=== PATIENT | male | born 1960 | race African-American/Black ===

== ENCOUNTER → 2018-06-24 09:09 | Outpatient (CLI) | payer BC, SELFPAY ==
--- NOTE | 2018-06-24 09:18 | US_ITS ---
US abdomen complete HISTORY: Right lower quadrant pain. Gallbladder removed. Intermittent right-sided pain ITS.REASON: ABD PAIN ORDERING PHYSICIAN: Nicolasa Anthony PATIENT AGE: 58 years COMPARISON: CTA chest December 2016 included only uppermost abdomen FINDINGS: . PANCREAS:Less than optimal visualization but no obvious mass or abnormal fluid collection. No ductal dilatation. LIVER:Increased echogenicity with diffuse fatty changes throughout the liver. No focal lesion.... No intrahepatic biliary ductal dilatation evident Portal vein normal size with normal direction flow. ( Initially question slight echogenicity recent portal vein but I believe this merely reflects the difficulty with penetration through this echogenic liver with resulting artifact) Gallbladder. Surgically removed. No biliary ductal dilatation. Kidneys appear normal size with cortex well-maintained. No hydronephrosis. Normal color Doppler survey both kidneys. RIGHT KIDNEY:U11.5 cm length x 5.9 cm x 8.9 cm. Unremarkable. Normal size and echogenicity. Period. LEFT KIDNEY:11.2 cm length x 6.5 cm x 7.1 cm Normal size and echogenicity. I would note a 8.4 x 8 mm hyperechoic nodule at the upper portion left kidney. Echogenic nodule of this character likely reflecting lipoma or angiomyolipoma of kidney. Although most likely benign features, suggest CT follow-up to further evaluate and characterize..pre and postcontrast may be helpful GALLBLADDER:No gallstones, gallbladder wall thickening, pericholecystic fluid, or biliary dilatation. AORTA: Normal caliber. Minimal plaque No evidence of aneurysmal dilatation. Period 1.8 cm approximately and tapers as it continues distal. SPLEEN:Normal size. And appearance. Measuring up to 11 cm in length. Period No ascites or free fluid abdomen. IMPRESSION: 1. Gallbladder is been removed. No bili ductal dilatation. 2. Fatty liver/Diffuse Hepatic steatosis 3. Left kidney.-There is a 8.4 mm hyperechoic nodule upper pole left kidney. 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
== END ==
PROVIDERS: PCP Nurse Practitioner; Visit Provider Nurse Practitioner
DX: R10.30 Lower abdominal pain, unspecified (principal)
CPT/HCPCS: 76700

== ENCOUNTER → 2018-07-04 14:10 | Outpatient (CLI) | payer BC, SELFPAY ==
--- NOTE | 2018-07-04 14:23 | CT_ITS ---
CT abdomen wo con CLINICAL INDICATION: Follow-up left renal mass ITS.REASON: LEFT KIDNEY MASS ORDERING PHYSICIAN: Nicolasa Anthony PATIENT AGE: 58 years COMPARISON: 06/24/2018, 07/20/2009 TECHNIQUE: Axial images obtained with sagittal and coronal reformats. All CT scans at the facility use one or more dose reduction, viz: automated exposure control, ma/kV adjustment per patient size (including targeted exams where dose is matched to indication, i.e. head), or iterative reconstruction technique. PROCEDURE: Oral Contrast: None IV Contrast: None . FINDINGS: No acute finding in the lower chest. Diffuse fatty liver. Prior cholecystectomy. The spleen, adrenal glands, and pancreas have an unremarkable unenhanced appearance. Previous ultrasound of 06/24/2018 demonstrated a 8 mm area of increased echogenicity along the superior pole the left kidney. There is a subtle millimeter area of decreased density in the upper pole the left kidney. This is nonspecific and not well circumscribed possibly corresponding to the sonographic abnormality.. No other significant anomalies are evident. No renal calculi are apparent. No bony abnormalities evident. IMPRESSION: There is a subtle area of decreased attenuation in the upper pole the left kidney possibly corresponding to the sonographic abnormality. This is of questionable clinical significance. Consider 3 month follow-up CT BOTH WITHOUT AND WITH IV CONTRAST for further evaluation.
== END ==
PROVIDERS: PCP Nurse Practitioner; Visit Provider Nurse Practitioner
DX: N28.89 Other specified disorders of kidney and ureter (principal)
CPT/HCPCS: 74150

== ENCOUNTER → 2022-04-19 09:51 | Outpatient (CLI) | payer BC, SELFPAY ==
--- NOTE | 2022-04-19 09:57 | XR_ITS ---
FINAL REPORT CLINICAL HISTORY: pain in neck and right shoulder blade, no sx FINDINGS: CERVICAL SPINE Four views were obtained. There is no acute fracture. There is no malalignment. There are mild degenerative changes with osteophytes. There is no soft tissue abnormality. IMPRESSION: Mild degenerative changes with no acute bony abnormality. THORACIC SPINE Two views were obtained. There is no acute fracture. There is no malalignment. There are moderate degenerative changes with osteophytes. There is mild chronic wedging of a midthoracic vertebra. There is no soft tissue abnormality. IMPRESSION: Moderate degenerative change with no acute bony abnormality. Reviewed, Interpreted and Dictated by Martín Springer III, MD Transcribed by Adrianna Ghosh Authenticated and . [facility]
== END ==
PROVIDERS: PCP Family Medicine; Visit Provider Nurse Practitioner Family
DX: M54.2 Cervicalgia (principal); M54.6 Pain in thoracic spine
CPT/HCPCS: 72084

== ENCOUNTER 2023-04-02 22:01 | Emergency (ER) | payer BC, SELFPAY ==
[2023-04-02 22:01] VITALS: BP 124/81; PULSE 74; RESP 16; TEMP 36.4; O2SAT 100; BMI 33.7
--- NOTE | 2023-04-02 22:05 | ECG_ITS ---
APPROVED REPORT Exam: Resting ECG HR:73 bpm ECG Measurements Heart Rate 73 AXES LA 165 P 66 QRSd 102 QRS 57 QT 374 T 65 QTc 399 Conclusion SINUS RHYTHM WITH SINUS ARRHYTHMIA NORMAL ECG UNCONFIRMED REPORT Electronically signed by : Colby Simpson MD 04/04/2023 18:27:45
[2023-04-02 22:30] VITALS: BP 122/78; PULSE 85; RESP 14; O2SAT 97
[2023-04-02 23:00] LABS: Basophils % 0.6 % (0.1-2.0); Eosinophils % 0.3 % (0.1-12.0); Hematocrit 51.4 % (42.0-52.0); Hemoglobin 17.3 g/dL (14.1-18.0); Lymphocytes % 31.2 % (10-50); Mean Corpuscular HGB Conc 33.7 g/dL (31.8-35.4); Mean Corpuscular Hemoglobin 29.4 pg (27.0-31.2); Mean Platelet Volume 8.3 fl (7.4-10.4); Monocytes # 0.4 K/mm3 (0.1-1.0); Monocytes % 6.7 % (1.7-9.3); Neutrophils # 3.9 K/mm3 (1.8-7.8); Neutrophils % 61.2 % (37.0-80.0); Platelet Count 246 K/mm3 (142-424); Red Cell Distribution Width 14.2 % (11.5-17.5); White Blood Count 6.3 K/mm3 (4.8-10.8)
[2023-04-02 23:01] VITALS: BP 102/65; PULSE 88; RESP 18; O2SAT 96
[2023-04-02 23:01] LABS: Chloride 100 mmol/L (98-107)
[2023-04-02 23:02] LABS: Potassium 3.7 mmoL/L (3.5-5.1); Sodium 137 mmol/L (136-145)
[2023-04-02 23:04] LABS: Alanine Aminotransferase 32 U/L (12-78); Albumin Level 5.1 g/dl (3.5-5.0); Albumin/Globulin Ratio 1.6 (1.1-1.8); Alkaline Phosphatase 72 U/L (38-126); Anion Gap 14.7 mEq/L (5-15); Aspartate Amino Transferase 49 U/L (17-59); Blood Urea Nitrogen 14 mg/dl (9-20); Carbon Dioxide 26 mmol/L (22.0-30.0); Creatinine Clearance Estimated 104 mL/min (50-200); Estimated Glomerular Filt Rate 68 ml/min (>60); GFR (African American) 82 ML/MIN (>60); Globulin 3.1 g/dL (1.3-3.2); Total Protein,Serum 8.2 g/dl (6.3-8.2)
[2023-04-02 23:05] LABS: Calcium 9.7 mg/dl (8.4-10.2); Glucose 195 mg/dl (74-100)
[2023-04-02 23:18] LABS: Troponin I < 0.01 ng/ml (0.00-0.034)
--- NOTE | 2023-04-02 23:18 | CT_ITS ---
PROCEDURE INFORMATION: Exam: CT Head Without Contrast Exam date and time: 04/02/2023 11:37 PM Age: 62 years old Clinical indication: Other: Vertigo; Additional info: Vertigo, recurrent syncope, fall TECHNIQUE: Imaging protocol: Computed tomography of the head without contrast. Radiation optimization: All CT scans at this facility use at least one of these dose optimization techniques: automated exposure control; mA and/or kV adjustment per patient size (includes targeted exams where dose is matched to clinical indication); or iterative reconstruction. REPORTING DATA: Count of CT and Cardiac NM exams in prior 12 months: This patient has received 0 known CTs and 0 known cardiac nuclear medicine studies in the 12 months prior to the current study. COMPARISON: CT ANGIO HEAD 04/02/2023 11:37 PM FINDINGS: Brain: No acute infarct. No hemorrhage. Unremarkable white matter for age. No mass effect. Cerebral ventricles: No ventriculomegaly. Paranasal sinuses: Scattered paranasal sinus mucosal thickening, without air-fluid level present. Mastoid air cells: Visualized mastoid air cells are well aerated. Orbital cavities: Mild bilateral proptosis. Bones/joints: Unremarkable. No acute fracture. Soft tissues: Unremarkable. IMPRESSION: No acute intracranial abnormality.
--- NOTE | 2023-04-02 23:18 | XR_ITS ---
PROCEDURE INFORMATION: Exam: XR Pelvis Exam date and time: 04/02/2023 11:46 PM Age: 62 years old Clinical indication: Injury or trauma; Fall; Blunt trauma (contusions or hematomas); Left; Pelvic region; Additional info: Fall, pain TECHNIQUE: Imaging protocol: Radiologic exam of the pelvis. Views: 1 or 2 view. COMPARISON: CR XR MULTIPLE SPINE 6+V 04/19/2022 10:22 AM FINDINGS: Bones/joints: There is mild osteoarthritis of the hips with joint space narrowing, productive changes, and subchondral sclerosis. The osseous structures are intact, with no signs of acute fracture, dislocation, or malalignment. Age-related degenerative changes are observed. There is no evidence of abnormal bone density or destructive lesions. Soft tissues: The soft tissues appear within normal limits. IMPRESSION: At the time of imaging, the study shows no acute osseous abnormalities but does reveal signs of age-related degenerative changes.
--- NOTE | 2023-04-02 23:18 | CT_ITS ---
PROCEDURE INFORMATION: Exam: CTA Chest With Contrast Exam date and time: 04/02/2023 11:45 PM Age: 62 years old Clinical indication: Pain; Other: Vertigo; Left-sided; Additional info: Vertigo, recurrent syncope, fall TECHNIQUE: Imaging protocol: Computed tomographic angiography of the chest with contrast. Exam focused on the arteries. 3D rendering (Not supervised by radiologist): MIP and/or 3D reconstructed images were created by the technologist. Radiation optimization: All CT scans at this facility use at least one of these dose optimization techniques: automated exposure control; mA and/or kV adjustment per patient size (includes targeted exams where dose is matched to clinical indication); or iterative reconstruction. Contrast material: ISOVUE; Contrast volume: 85 ml; Contrast route: INTRA-ARTERIAL (ARTERIAL); REPORTING DATA: Count of CT and Cardiac NM exams in prior 12 months: This patient has received 0 known CTs and 0 known cardiac nuclear medicine studies in the 12 months prior to the current study. COMPARISON: [facility] CTA-CHEST 12/18/2016 7:13 AM FINDINGS: Pulmonary arteries: Normal. No pulmonary emboli. Lobar, segmental, and subsegmental vessels are not well evaluated. Aorta: There is atherosclerotic disease of the visualized aorta and its major branch vessels. Lungs: Scattered areas of bronchial wall thickening which are likely chronic inflammatory. A few areas of subpleural reticulation are noted, nonspecific. Stable calcified granuloma in the right lower lobe. Evaluation for small pulmonary nodules is precluded by patient condition. Fleischner Society guidelines are n/a. There is atelectasis at the lung bases. Pleural spaces: Unremarkable. No pneumothorax. No pleural effusion. Heart: Unremarkable. No cardiomegaly. No pericardial effusion. Lymph nodes: Unremarkable. No enlarged lymph nodes. Liver: There is possible hepatic steatosis, evaluation is limited secondary to contrast enhancement. Gallbladder and bile ducts: The patient is status post cholecystectomy. Bones/joints: There is diffuse degenerative disease of the visualized osseous structures. Soft tissues: There is bilateral gynecomastia. IMPRESSION: 1. The aorta is normal in course and caliber without focal abnormality. No dissection or aneurysm. 2. No dense parenchymal consolidation, pleural effusion, or pneumothorax.
--- NOTE | 2023-04-02 23:18 | CT_ITS ---
PROCEDURE INFORMATION: Exam: CTA Neck With Contrast Exam date and time: 04/02/2023 11:37 PM Age: 62 years old Clinical indication: Vertigo; Additional info: Vertigo, recurrent syncope, fall TECHNIQUE: Imaging protocol: Computed tomographic angiography of the neck with contrast. Exam focused on the cervical segments of the vasculature. 3D rendering (Not supervised by radiologist): MIP and/or 3D reconstructed images were created by the technologist. Radiation optimization: All CT scans at this facility use at least one of these dose optimization techniques: automated exposure control; mA and/or kV adjustment per patient size (includes targeted exams where dose is matched to clinical indication); or iterative reconstruction. Contrast material: ISOVUE; Contrast volume: 95 ml; Contrast route: INTRAVENOUS (IV); REPORTING DATA: Count of CT and Cardiac NM exams in prior 12 months: This patient has received 0 known CTs and 0 known cardiac nuclear medicine studies in the 12 months prior to the current study. COMPARISON: CT ANGIO HEAD 04/02/2023 11:37 PM FINDINGS: Right common carotid artery: No stenosis. No dissection or occlusion. Right internal carotid artery: No stenosis of the extracranial segment. No dissection or occlusion. Right external carotid artery: No occlusion or stenosis of the origin. Left common carotid artery: No stenosis. No dissection or occlusion. Left internal carotid artery: No stenosis of the extracranial segment. No dissection or occlusion. Left external carotid artery: No occlusion or stenosis of the origin. Right vertebral artery: No stenosis. No dissection or occlusion. Left vertebral artery: No stenosis. No dissection or occlusion. Soft tissues: Normal. No significant soft tissue swelling. Bones/joints: No acute fracture. IMPRESSION: No stenosis or occlusion. REFERENCES: NASCET CRITERIA. The degree of stenosis in the cervical segment of the internal carotid artery is based on NASCET criteria. Normal is no stenosis. Mild is less than 50% stenosis. Moderate is 50-69% stenosis. Severe is 70% to 99% stenosis. Total occlusion is no detectable patent lumen.
--- NOTE | 2023-04-02 23:18 | CT_ITS ---
PROCEDURE INFORMATION: Exam: CTA Head With Contrast, Arteriography Exam date and time: 04/02/2023 11:37 PM Age: 62 years old Clinical indication: Vertigo; Additional info: Vertigo, recurrent syncope, fall TECHNIQUE: Imaging protocol: Computed tomographic angiography of the head with contrast. Exam focused on the arteries. 3D rendering (Not supervised by radiologist): MIP and/or 3D reconstructed images were created by the technologist. Radiation optimization: All CT scans at this facility use at least one of these dose optimization techniques: automated exposure control; mA and/or kV adjustment per patient size (includes targeted exams where dose is matched to clinical indication); or iterative reconstruction. Contrast material: ISOVUE; Contrast volume: 95 ml; Contrast route: INTRAVENOUS (IV); REPORTING DATA: Count of CT and Cardiac NM exams in prior 12 months: This patient has received 0 known CTs and 0 known cardiac nuclear medicine studies in the 12 months prior to the current study. COMPARISON: CT HEAD/BRAIN WO CON 04/02/2023 11:37 PM FINDINGS: ANTERIOR CIRCULATION: Right internal carotid artery: Intracranial segment is patent with no significant stenosis. No aneurysm. Right middle cerebral artery: No occlusion or significant stenosis. No aneurysm. Right anterior cerebral artery: No occlusion or significant stenosis. No aneurysm. Left internal carotid artery: Intracranial segment is patent with no significant stenosis. No aneurysm. Left middle cerebral artery: No occlusion or significant stenosis. No aneurysm. Left anterior cerebral artery: No occlusion or significant stenosis. No aneurysm. POSTERIOR CIRCULATION: Right vertebral artery: No occlusion or significant stenosis. No aneurysm. Left vertebral artery: No occlusion or significant stenosis. No aneurysm. Basilar artery: No occlusion or significant stenosis. No aneurysm. Right posterior cerebral artery: No occlusion or significant stenosis. No aneurysm. Left posterior cerebral artery: No occlusion or significant stenosis. No aneurysm. Brain: No definite mass, mass effect, or midline shift. Cerebral ventricles: No ventriculomegaly. Bones/joints: Unremarkable. No acute fracture. Soft tissues: Unremarkable. IMPRESSION: No large vessel stenosis or occlusion.
[2023-04-02 23:20] VITALS: BP 102/74; BP 117/76; BP 119/73; PULSE 67; PULSE 80; PULSE 88
--- NOTE | 2023-04-02 23:30 | HMH.EDGENADL ---
Discharge Plan Disposition Patient Disposition: Home, Self-Care Condition: Good Referrals Follow up/Referrals: Tirso Leach MD [Staff Physician] - See instructions Provider,MD Lynette [Primary Care Provider] - See instructions Activity Restrictions/Add. Instructions Additional Instructions/Restrictions: You were evaluated in the emergency department today. Please keep the Holter monitor that was provided to you on. Follow-up with cardiology for the results of this. We have provided you the information for Dr. Leach. Please call their office to arrange an appointment. Call your primary care provider to let them know that you were evaluated in the emergency department today. You may need to have your blood pressure medication decreased if you continue to have symptoms of lightheadedness with position changes. Make sure that you are staying hydrated. Return to the emergency department for new or worsening symptoms. Clinical Impressions Clinical Impression: Dehydration, Orthostatic hypotension, Syncope Instructions Patient Instructions: DI for Syncope in Adults (Fainting), DI for Dehydration -- Adult Discharge ED Provider: Nakita Perez General Adult HPI General Chief complaint: Syncope Stated complaint: Syncope Time Seen by Provider: 04/02/23 23:06 Mode of Arrival: EMS Source of Information: Patient Limitations: No Limitations Description of Symptoms (Recalled from ER Triage Doc. by RN): pt has been having off and episodes of dizziness and chest pain for the last two weeks, tonight patient passed out twice and fell on left side and is complaing of left rib pain and has a skin tear on left elbow History of Present Illness HPI narrative: This patient is a 62-year-old male with a history of hypertension and diabetes on metoprolol and Jardiance presenting to the emergency department for evaluation with concern for episodes of dizziness, left upper chest pain, and fatigue over the last 2 weeks. He states that tonight, this caused him to pass out twice. The second time, he fell onto his left side between the door frame and is complaining of left rib pain and left elbow wound. He notes that the dizziness is like the room is spinning and it will come on suddenly. Mother seems to bring it on. Nothing makes it better or worse. He denies any recent illnesses, such as fever, cough, congestion, abdominal pain, nausea, vomiting, changes in bowel movements, dysuria, rashes, swelling, or other concerns. He also denies any recent changes in medications. He notes that he has been eating and drinking fine, but he has not slept well in 2 weeks. Related Data Allergies Allergy/AdvReac Type Severity Reaction Status Date / Time No Known Drug Allergies Allergy Unknown Verified 04/02/23 23:34 [NKDA] [facility] Disclaimer: The information contained in this section may have been updated after the patient was seen, as this information can be updated by other users. Social History (Updated 04/03/23 @ 02:54 by Nakita Perez DO) Smoking Status: Never smoker alcohol intake: never current occupational status: employed Travel in the last 8 weeks: None ROS Obtained: Yes All systems reviewed & no additional complaints except as documented Physical Exam General General appearance: alert and in no apparent distress Head Head exam: atraumatic and normocephalic Eye Eye exam: Present PERRL, EOMI and nystagmus (Unidirectional horizontal nystagmus); Absent scleral icterus or conjunctival redness ENT ENT exam: Present normal exam, normal oropharynx, mucous membranes moist and normal external ear exam Neck Neck exam: Present normal inspection, full ROM and trachea midline; Absent tenderness Chest Chest inspection: Present symmetric chest wall rise and tenderness (Left chest wall) Respiratory Respiratory exam: Present normal lung sounds bilaterally; Absent respiratory distress, wheezes, stridor or accessory muscle use Cardi
[2023-04-02 23:31] LABS: VBG Base Excess -1.8 mmol/L (-2.4-2.3); VBG HCO3 23.2 mmol/L (23-30); VBG Oxygen Saturation 76.9 % (50-70); VBG PCO2 39.2 mmol/L (35-51); VBG PH 7.39 mmol/L (7.31-7.41); VBG PO2 41.4 mmol/L (28-40); VBG Total CO2 24.4 mmol/L (23-27)
[2023-04-02 23:39] LABS: Magnesium 2.5 mg/dl (1.6-2.3)
[2023-04-02 23:49] LABS: NT Pro Brain Natriuretic Pep. 71.3 pg/mL (0-125)
[2023-04-02 23:57] LABS: T4 (Thyroxine) 7.9 ug/dl (5.53-11.0)
[2023-04-03] VITALS (9 sets, daily range): BP systolic 96–125; BP diastolic 61–76; PULSE 60–88; RESP 15–20; TEMP 36.5; O2SAT 94–99
[2023-04-03 00:10] LABS: Thyroid Stimulating Hormone 4.83 uIU/mL (0.465-4.68)
[2023-04-03 00:33] LABS: Microscopic, Urine URINE MICROSCOPIC (MICROSCOPIC)
[2023-04-03 00:35] LABS: Appearance,Urine CLEAR (Clear); Bilirubin,Urine Negative (Negative); Blood, Urine Negative (Negative); Color,Urine YELLOW (Yellow); Glucose,Urine (UA) 3+ (Negative); Ketones,Urine 1+ (Negative); Leukocyte Esterase,Urine Negative (Negative); Nitrate,Urine Negative (Negative); Protein,Urine Negative (Negative); Urobilinogen,Urine 0.2 EU/dl (0.2)
[2023-04-03 01:06] LABS: Bacteria,Urine Trace /lpf
[2023-04-03 01:09] LABS: Lactic Acid 1.6 mmol/L (0.7-2.1)
[2023-04-03 01:15] LABS: Coronavirus 19, PCR Not Detected (NotDetected); Influenza A, PCR Not Detected (NotDetected); Influenza B, PCR Not Detected (NotDetected)
[2023-04-03 02:47] LABS: Troponin I < 0.01 ng/ml (0.00-0.034)
== END 2023-04-03 03:12 | disposition home or self-care (01) ==
PROVIDERS: Emergency Medicine; Emergency Provider Emergency Medicine
DX: R07.81 Pleurodynia (principal); E86.0 Dehydration; I95.1 Orthostatic hypotension; R42 Dizziness and giddiness; R53.83 Other fatigue; S51.002A Unspecified open wound of left elbow, initial encounter; E11.9 Type 2 diabetes mellitus without complications; I10 Essential (primary) hypertension; W18.30XA Fall on same level, unspecified, initial encounter
CPT/HCPCS: 70450; 70496; 70498; 71275; 72170; 80053; 81001; 82803; 83605; 83735; 83880; 84436; 84443; 84484; 85025; 87636; 93005; 93225; 96361; 96374; 99285; J0131; Q9967

== ENCOUNTER 2023-08-10 15:24 | Outpatient (CLI) | payer BC, SELFPAY ==
--- NOTE | 2023-08-10 15:28 | XR_ITS ---
FINAL REPORT CLINICAL HISTORY: RT SHOULDER PAIN,TENDONITIS FINDINGS: Right shoulder Three views were obtained. There is no acute fracture or dislocation. There is mild AC joint degenerative change. No soft tissue abnormality is identified. IMPRESSION: Mild AC joint degenerative change. Reviewed, Interpreted and Dictated by Martín Springer III, MD Transcribed by Mae Lam Authenticated and [facility]
== END 2023-08-10 23:59 ==
LOC: RAD 15:25
PROVIDERS: PCP Family Medicine; Visit Provider Nurse Practitioner Family
DX: M25.511 Pain in right shoulder (principal); M77.9 Enthesopathy, unspecified
CPT/HCPCS: 73030

== ENCOUNTER 2024-06-02 03:54 | Emergency (ER) | payer MEDICARE, SELFPAY ==
[2024-06-02] VITALS (13 sets, daily range): BP systolic 111–155; BP diastolic 71–101; PULSE 52–85; RESP 13–20; TEMP 36.6–36.7; O2SAT 96–99; BMI 31.5
--- NOTE | 2024-06-02 04:04 | CT_ITS ---
PROCEDURE INFORMATION: Exam: CT Head Without Contrast Exam date and time: 06/02/2024 4:36 AM Age: 64 years old Clinical indication: Dizziness; Additional info: Dizziness, transient now resolved TECHNIQUE: Imaging protocol: Computed tomography of the head without contrast. Radiation optimization: All CT scans at this facility use at least one of these dose optimization techniques: automated exposure control; mA and/or kV adjustment per patient size (includes targeted exams where dose is matched to clinical indication); or iterative reconstruction. COMPARISON: CT ANGIO HEAD 04/02/2023 11:37 PM FINDINGS: Brain: Normal. No hemorrhage. Unremarkable white matter. No mass effect. Cerebral ventricles: No ventriculomegaly. Paranasal sinuses: Visualized sinuses are unremarkable. No fluid levels. Mastoid air cells: Visualized mastoid air cells are well aerated. Bones: Unremarkable. No acute fracture. Soft tissues: Unremarkable. IMPRESSION: No acute intracranial abnormality.
--- NOTE | 2024-06-02 04:04 | CT_ITS ---
PROCEDURE INFORMATION: Exam: CTA Head With Contrast, Venography Exam date and time: 06/02/2024 4:48 AM Age: 64 years old Clinical indication: Dizziness and giddiness; Additional info: Dizziness, transient now resolved TECHNIQUE: Imaging protocol: Computed tomography angiography of the head with contrast. Exam focused on the veins. 3D rendering (Not supervised by radiologist): MIP and/or 3D reconstructed images were created by the technologist. Radiation optimization: All CT scans at this facility use at least one of these dose optimization techniques: automated exposure control; mA and/or kV adjustment per patient size (includes targeted exams where dose is matched to clinical indication); or iterative reconstruction. Contrast material: ISOUVE 370; Contrast volume: 80 ml; Contrast route: INTRAVENOUS (IV); COMPARISON: CT ANGIO HEAD 06/02/2024 4:48 AM FINDINGS: Superior sagittal sinus: Patent. 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 Straight sinus: Patent. Transverse sinuses: Patent. Hypoplastic left transverse sinus. Sigmoid sinuses: Patent. Internal jugular veins: Limited visualized internal jugular veins are patent. No evidence of intracranial large vessel arterial occlusion. 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 Unchanged infundibulum at the origin of the left posterior communicating artery. Brain: Please see CT head report 06/02/2024. Cerebral ventricles: Please see CT head report 06/02/2024. Note is made of mucous retention cyst formation of the maxillary sinuses bilaterally. Soft tissues: Unremarkable. IMPRESSION: No evidence of venous thrombosis as detailed above.
--- NOTE | 2024-06-02 04:04 | XR_ITS ---
PROCEDURE INFORMATION: Exam: XR Chest Exam date and time: 06/02/2024 4:41 AM Age: 64 years old Clinical indication: Other: Dizziness TECHNIQUE: Imaging protocol: Radiologic exam of the chest. Views: 2 views. COMPARISON: CR XR CHEST 2V 06/02/2024 4:41 AM FINDINGS: Lungs: No consolidation. Subtle bibasilar atelectasis. 2 mm calcified granuloma base. Pleural spaces: No pleural effusion. No pneumothorax. Heart/Mediastinum: No cardiomegaly. Bones/joints: Degenerative change of the thoracic spine. Right upper quadrant cholecystectomy clips noted. IMPRESSION: No radiographic evidence of an acute thoracic abnormality.
--- NOTE | 2024-06-02 04:04 | CT_ITS ---
PROCEDURE INFORMATION: Exam: CTA Neck With Contrast Exam date and time: 06/02/2024 4:48 AM Age: 64 years old Clinical indication: Dizziness and giddiness; Additional info: Dizziness, transient now resolved TECHNIQUE: Imaging protocol: Computed tomographic angiography of the neck with contrast. Exam focused on the cervical segments of the vasculature. 3D rendering (Not supervised by radiologist): MIP and/or 3D reconstructed images were created by the technologist. Radiation optimization: All CT scans at this facility use at least one of these dose optimization techniques: automated exposure control; mA and/or kV adjustment per patient size (includes targeted exams where dose is matched to clinical indication); or iterative reconstruction. Contrast material: ISOUVE 370; Contrast volume: 80 ml; Contrast route: INTRAVENOUS (IV); COMPARISON: CT ANGIO NECK 04/02/2023 11:37 PM FINDINGS: Right common carotid artery: No stenosis. No dissection or occlusion. Right internal carotid artery: No stenosis of the extracranial segment. No dissection or occlusion. 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 Right external carotid artery: No occlusion or stenosis of the origin. Left common carotid artery: No stenosis. No dissection or occlusion. Left internal carotid artery: No stenosis of the extracranial segment. No dissection or occlusion. There is mild ectasia of the proximal segment. Left external carotid artery: No occlusion or stenosis of the origin. Right vertebral artery: No stenosis. No dissection or occlusion. Left vertebral artery: No stenosis. No dissection or occlusion. Soft tissues: Normal. No significant soft tissue swelling. Bones/joints: Mild degenerative change of the cervical spine. IMPRESSION: No evidence of occlusion or hemodynamically significant stenosis of the carotid arterial vasculature of the neck. The vertebral arteries are patent. REFERENCES: NASCET CRITERIA. The degree of stenosis in the cervical segment of the internal carotid artery is based on NASCET criteria. Normal is no stenosis. Mild is less than 50% stenosis. Moderate is 50-69% stenosis. Severe is 70% to 99% stenosis. Total occlusion is no detectable patent lumen.
--- NOTE | 2024-06-02 04:09 | HMH.EDGENADL ---
Discharge Plan Disposition Patient Disposition: Home, Self-Care Condition: Good Prescriptions Prescriptions: New meclizine 25 mg tablet 25 mg PO QID PRN (Reason: dizziness) Qty: 20 0RF No Action lisinopril-hydrochlorothiazide 20-12.5 mg tablet 1 tab PO DAILY Patient Comments: TAKE 1 TABLET BY MOUTH ONCE DAILY Januvia 100 mg tablet 100 mg PO DAILY Jardiance 25 mg tablet 25 mg PO DAILY Patient Comments: TAKE 1 TABLET BY MOUTH ONCE DAILY Referrals Follow up/Referrals: Lakhwinder Langston MD [Primary Care Provider] - See instructions Arie Arora MD [Staff Physician] - See instructions (hematuria incidental finding) Activity Restrictions/Add. Instructions Additional Instructions/Restrictions: You were evaluated in the emergency department today. As discussed, please follow-up outpatient with urology for blood in your urine. Please also follow-up with primary care for further evaluation and management of your dizziness. 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 Return to the emergency department right away for new or worsening symptoms. Clinical Impressions Clinical Impression: Orthostatic hypotension, Dizziness, Hematuria Stand Alone Forms Stand Alone Forms: Work/School Release Instructions Patient Instructions: Dizziness, Nonvertigo Print Language Print Language: Qatari Discharge ED Provider: Michelle Calabrese General Adult HPI <Michelle Calabrese MD - Last Filed: 06/02/24 07:10> General Chief complaint: Dizziness Stated complaint: dizziness, nausea Time Seen by Provider: 06/02/24 04:04 History of Present Illness HPI narrative: 64-year-old male presents to the ER with room spinning dizziness. He states he got out of bed approximately 1 hour prior to arrival and had sudden onset room spinning dizziness. He states he took an [place] because he was experiencing associated nausea and laid back down briefly. He states the dizziness resolved, he has had a persistent mild nausea but no vomiting. He states with his persistent nausea he decided to come to the ER for evaluation. He drove himself. He reports he has not had any recurrence of the room spinning dizziness. He states he has never had symptoms like that before. Review of previous records demonstrates he was evaluated in the ER in March 2023 and had orthostatic hypotension, dehydration, he was experiencing episodes of dizziness, but he reports that those episodes were different than his episode today. He states with the dehydration he was lightheaded, he has never experienced the room spinning like he did this morning. He does not take insulin, he takes Jardiance for his type 2 diabetes. He had not checked his blood sugar this morning. He has not had vomiting, diarrhea, or abdominal pain. He does not have headache, numbness, tingling, weakness, vision changes, or hearing changes. He reports he has mild nausea still. He has not had dysuria or hematuria, he does not describe any associated chest pain, palpitations, or shortness of breath. He has not had any recent illness, no fevers or chills. He reports he is compliant with his medications. Related Data Home Medications ?Medication ?Instructions ?Recorded ?Confirmed empagliflozin 25 mg tablet 25 mg PO DAILY 04/04/23 04/04/23 (Jardiance) lisinopril 20 1 tab PO DAILY 04/04/23 04/04/23 mg-hydrochlorothiazide 12.5 mg tablet sitagliptin phosphate 100 mg 100 mg PO DAILY 04/04/23 04/04/23 tablet (Januvia) Previous Rx's ?Medication ?Instructions ?Recorded meclizine 25 mg tablet 25 mg PO QID PRN dizziness #20 tabs 06/02/24 Allergies Allergy/AdvReac Type Severity Reaction Status Date / Time No Known Drug Allergies Allergy Unknown Verified 04/04/23 11:12 (NKDA) [facility] <Michelle Calabrese MD - Last Filed: 06/02/24 07:10> [facility] Disclaimer: The information contained in this section may have been updated after the patient was seen, as this information can be updated by other users. Medical History (Updated 06/02/24 @ 06:56 by Michelle Calabrese MD) Diabetes Syncope Orthostatic hypotension Surgical History (Updated 04/04/23 @ 11:15 by JEANETTE oNriega) History of dental surgery Hx of cholecystectomy Family History Brother Asthma Diabetes Family/Other Asthma Father Cancer Sister Cancer Kidney disease Mother Family history non-contributory Social History Smoking Status: Never smoker alcohol intake: never current occupational status: employed Travel in the last 8 weeks: None Other Medical History Have you received the Pneumonia Vaccine: No <Michelle Calabrese MD - Last Filed: 06/02/24 07:10> ROS Obtained: Yes Systems reviewed as appropriate & no additional complaints except as documented Per HPI Physical Exam <Michelle Calabrese MD - Last Filed: 06/02/24 07:10> General General appearance: alert and in no apparent distress Head Head exam: atraumatic and normocephalic Eye Eye exam: Present PERRL, EOMI and other (Normal peripheral vision gray); Absent nystagmus ENT ENT exam: Present mucous membranes moist Neck Neck exam: Present normal inspection and full ROM; Absent tenderness Chest Chest inspection: Present symmetric chest wall rise Respiratory Respiratory exam: Present normal lung sounds bilaterally; Absent respiratory distress, wheezes or stridor Cardiovascular Cardiovascular exam: Present regular rate and normal rhythm Abdominal Exam Abdominal exam: Present soft; Absent distention or tenderness Extremities Exam Extremities exam: Present full ROM; Absent edema or joint swelling Neurological Exam Neurological exam: Present alert, oriented X3, CN II-XII intact, normal gait and other (NIH 0; patient has normal strength and sensation throughout, normal [id number] and [id number], no pronator drift); Absent motor sensory deficit Psychiatric Psychiatric exam: Present normal affect and normal mood Skin Skin exam: Present warm and dry Medical Decision Making <Michelle Calabrese MD - Last Filed: 06/02/24 07:10> Medical Records Medical records reviewed: Yes I reviewed the patient's medical records. Screening: Per USPSTF and CDC recommendations, given the prevalence of disease in our region, it is our hospital?s policy to screen for HIV and viral Hepatitis for all patients aged 18 and over and those with ongoing risk factors. MR Comment: See HPI. Additionally, reviewed cardiology note from March 2023 after patient was evaluated in the ER. Plan at that time was to continue patient's current hypertension regimen. He recommended weight loss via diet and exercise. Continue heart monitor. Plan was to follow-up in 1 month, there is no record of the patient following up. [place] Inquiry Pt receiving controlled substance: No Vital Signs: 06/02/24 04:08 06/02/24 04:26 06/02/24 07:01 Temperature 98.1 F Temperature Source Oral Pulse Rate 57 L Pulse Rate [Orthostatic Lying Right] 60 Pulse Rate [Orthostatic Sitting Right] 71 Pulse Rate [Orthostatic Standing Right] 85 Pulse Rate [Right Brachial] 65 Respiratory Rate 20 Blood Pressure 128/82 Blood Pressure [Orthostatic Lying Right Arm] 121/78 Blood Pressure [Orthostatic Sitting Right Arm] 125/84 Blood Pressure [Orthostatic Standing Right Arm] 111/84 Blood Pressure [Right Arm] 143/93 H Blood Pressure Mean Blood Pressure Mean [Right Arm] 109 Blood Pressure Source [Right Arm] Automatic Cuff Blood Pressure Position [Right Arm] Sitting 02 Sat by Pulse Oximetry 98 98 Oxygen Delivery Method Room Air Room Air 06/02/24 07:05 06/02/24 08:11 06/02/24 08:30 Temperature 97.8 F Temperature Source Oral Pulse Rate 52 L 55 L Pulse Rate [Orthostatic Lying Right] Pulse Rate [Orthostatic Sitting Right] Pulse Rate [Orthostatic Standing Right] Pulse Rate [Right Brachial] Respiratory Rate 16 16 Blood Pressure 149/101 H Blood Pressure [Orthostatic Lying Right Arm] Blood Pressure [Orthostatic Sitting Right Arm] Blood Pressure [Orthostatic Standing Right Arm] Blood Pressure [Right Arm] Blood Pressure Mean Blood Pressure Mean [Right Arm] Blood Pressure Source [Right Arm] Blood Pressure Position [Right Arm] 02 Sat by Pulse Oximetry 99 96 Oxygen Delivery Method Room Air 06/02/24 08:31 06/02/24 08:45 06/02/24 09:00 Temperature Temperature Source Pulse Rate 57 L 54 L 54 L Pulse Rate [Orthostatic Lying Right] Pulse Rate [Orthostatic Sitting Right] Pulse Rate [Orthostatic Standing Right] Pulse Rate [Right Brachial] Respiratory Rate 20 17 19 Blood Pressure 155/97 H 115/77 Blood Pressure [Orthostatic Lying Right Arm] Blood Pressure [Orthostatic Sitting Right Arm] Blood Pressure [Orthostatic Standing Right Arm] Blood Pressure [Right Arm] Blood Pressure Mean Blood Pressure Mean [Right Arm] Blood Pressure Source [Right Arm] Blood Pressure Position [Right Arm] 02 Sat by Pulse Oximetry 97 97 96 Oxygen Delivery Method 06/02/24 09:30 06/02/24 10:00 06/02/24 10:33 Temperature Temperature Source Pulse Rate 53 L 58 L Pulse Rate [Orthostatic Lying Right] 53 L Pulse Rate [Orthostatic Sitting Right] 58 L Pulse Rate [Orthostatic Standing Right] 74 Pulse Rate [Right Brachial] Respiratory Rate 17 18 Blood Pressure 120/73 121/71 Blood Pressure [Orthostatic Lying Right Arm] 128/77 Blood Pressure [Orthostatic Sitting Right Arm] 126/80 Blood Pressure [Orthostatic Standing Right Arm] 126/80 Blood Pressure [Right Arm] Blood Pressure Mean 78 Blood Pressure Mean [Right Arm] Blood Pressure Source [Right Arm] Blood Pressure Position [Right Arm] 02 Sat by Pulse Oximetry 96 98 Oxygen Delivery Method Room Air 06/02/24 10:41 Temperature 98.0 F Temperature Source Pulse Rate 53 L Pulse Rate [Orthostatic Lying Right] Pulse Rate [Orthostatic Sitting Right] Pulse Rate [Orthostatic Standing Right] Pulse Rate [Right Brachial] Respiratory Rate 13 Blood Pressure 128/77 Blood Pressure [Orthostatic Lying Right Arm] Blood Pressure [Orthostatic Sitting Right Arm] Blood Pressure [Orthostatic Standing Right Arm] Blood Pressure [Right Arm] Blood Pressure Mean Blood Pressure Mean [Right Arm] Blood Pressure Source [Right Arm] Blood Pressure Position [Right Arm] 02 Sat by Pulse Oximetry Oxygen Delivery Method Lab Data Lab Results 06/02/24 04:04: VBG pH 7.37, VBG pCO2 48.0, VBG pO2 38.9, VBG HCO3 26.9, VBG Total CO2 28.4 H, VBG O2 Saturation 71.2 H, VBG Base Excess 1.5, VBG Lactic Acid 1.8 06/02/24 04:05: WBC 4.3 L, RBC 5.76, Hgb 16.5, Hct 48.9, MCV 84.9, MCH 28.6, MCHC 33.7, RDW 13.1, Plt Count 197, MPV 9.6, Neut % (Auto) 45.4, Lymph % (Auto) 39.7, [place] % (Auto) 10.7 H, Eos % (Auto) 2.1, Baso % (Auto) 1.4, Neut # (Auto) 2.0, Lymph # (Auto) 1.7, [place] # (Auto) 0.5, Eos # (Auto) 0.1, Baso # (Auto) 0.1, PT 9.8, INR 0.88 L, Sodium 135 L, Potassium 3.9, Chloride 97 L, Carbon Dioxide 27, Anion Gap 14.9, BUN 15, Creatinine 1.00, Estimated Creat Clear 104, Estimated GFR 75, Est GFR ( Amer) 91, Glucose 250 H, Calcium 9.1, Total Bilirubin 0.7, AST 51, ALT 39, Alkaline Phosphatase 78, Troponin I < 0.01, Total Protein 7.2, Albumin 4.4, Globulin 2.8, Albumin/Globulin Ratio 1.6, Acetone Level None detected, HCV Ab MILAGROS w/Rflx PCR Qn Negative, HIV Ag/Ab Combo Qual Negative 06/02/24 05:17: Urine Color Yellow, Urine Appearance Cloudy, Urine pH 5.5, Ur Specific [place] <= 1.005, Urine Protein Negative, Urine Glucose (UA) 3+, Urine Ketones Negative, Urine Blood 3+ A, Urine Nitrate Negative, Urine Bilirubin Negative, Urine Urobilinogen 0.2, Ur Leukocyte Esterase Negative, Urine RBC 20-50, Urine WBC None, Ur Squamous Epith Cells Occasional, Urine Bacteria None 06/02/24 08:31: Troponin I < 0.01 06/02/24 04:05 06/02/24 04:05 Orders (Tests/Meds): ED MEDICATIONS Discontinued Medications Generic Name Dose Route Start Last Admin Trade Name Freq PRN Reason Stop Dose Admin Lactated Ringer's 1,000 mls @ 999 mls/hr 06/02/24 04:04 06/02/24 04:13 Lactated Ringer's 1000 Ml Bag IV 06/02/24 05:04 999 mls/hr .Q1H1M ONE Administration Iopamidol 80 ml 06/02/24 04:56 06/02/24 04:57 Iopamidol-370 (76%);100ml Bottle IV 06/02/24 04:57 80 ml ONCE ONE Administration Meclizine HCl 25 mg 06/02/24 04:04 06/02/24 04:12 Meclizine 25mg Tablet PO 06/02/24 04:05 25 mg ONCE ONE Administration Ondansetron HCl 4 mg 06/02/24 04:04 06/02/24 04:12 Ondansetron 4mg/2ml Vial IV 06/02/24 04:05 4 mg ONCE ONE Administration Sodium Chloride 50 ml 06/02/24 04:56 06/02/24 04:57 0.9 % Sodium Chloride 50 Ml Vial IV 06/02/24 04:57 50 ml ONCE ONE Administration Sodium Chloride 10 ml 06/02/24 04:56 06/02/24 04:57 Sodium Chloride 0.9% 10ml Syr (Rad Only) IV 07/02/24 04:55 10 ml NEEDED PRN Administration Maintain IV Site ORDERS Category Date Time Status CT angio head Stat Cat Scan 06/02/24 04:[address] angio neck Stat Cat Scan 06/02/24 04:[address] head/brain wo con Stat Cat Scan 06/02/24 04:04 Completed CXR 2 view (NOT portable) [XR chest 2V] Stat Exams 06/02/24 04:04 Completed Acetone, Serum (Rapid) Stat Lab 06/02/24 04:05 Completed CBC w/Auto Diff [Complete Blood Count Auto Diff] Stat Lab 06/02/24 04:05 Completed CMP [Comprehensive Metabolic Panel] Stat Lab 06/02/24 04:05 Completed HIV Combo Routine Lab 06/02/24 04:05 Completed Hepatitis C Ab Qual. W/ RFX Routine Lab 06/02/24 04:05 Completed PT INR [Prothrombin Time INR] Stat Lab 06/02/24 04:05 Completed Trop I [Troponin I] Stat Lab 06/02/24 04:05 Completed Troponin I Q3H Lab 06/02/24 08:31 Completed Urinalysis and Microscopic Stat Lab 06/02/24 05:17 Completed VBG [Venous Blood Gas] Stat RT 06/02/24 04:04 Completed Medical Decision Narrative: In summary, this 64-year-old male with comorbidities described in the HPI which increased the amount of data to be reviewed as well as his overall morbidity presents to the emergency department today with room spinning dizziness with associated nausea, dizziness has resolved. On initial evaluation patient is hemodynamically stable, afebrile, GCS 15 with no neurologic deficits, no nystagmus, benign abdominal exam, benign cardiopulmonary exam, NIH 0. Differential diagnosis includes but is not limited to orthostatic hypotension which patient has had in the past, also considered vertigo, ACS, I did consider intracranial bleed, ischemic stroke, but have lower suspicion for these given patient's very transient nature of symptoms. I considered TIA, dehydration, electrolyte abnormality, arrhythmia, UTI, patient was hyperglycemic on fingerstick upon arrival to the ER so I considered DKA since patient is on empagliflozin. Based on these concerns, I ordered broad workup including serum labs, cardiac workup, CT imaging including CT head without contrast, CT angiography of the head and neck. I did not stroke alert the patient due to his NIH of 0 and currently absent symptoms but still I am concerned for possible stroke versus TIA. He was taken urgently to CT for rapid evaluation. Orthostatics reveal more than 10 mmHg drop in systolic blood pressure when changing positions and a heart rate increase of 25 bpm with change in position. Positive orthostatics. Patient is receiving IV fluids. ECG personally interpreted demonstrates sinus bradycardia, rate 57, normal axis, normal LA and QTc, no STEMI. Patient received Zofran, meclizine, IV fluids initially for treatment Labs personally reviewed demonstrate trace leukopenia but no neutropenia, normal hemoglobin and platelets, PT/INR nonactionable, VBG with normal pH, normal lactic, pCO2 normal, patient has trace hyponatremia and hypochloremia, nonspecific and nonactionable, good kidney function, hyperglycemia, no acetone detected. Labs are reassuring against DKA. UA is concerning for hematuria. Patient states he has had this previously but has not been evaluated for prostate abnormalities recently. I referred him to urology for follow-up. XR personally interpreted demonstrates no acute intrathoracic abnormality such as pneumothorax, pneumonia, mediastinal widening, see radiology read for final interpretation. CT imaging personally interpreted demonstrate no acute intracranial bleed, mass, or midline shift, I also do not appreciate large vessel occlusion in the head or neck angiography, see radiology reads for final interpretations. I called ad radiologist Dr. Maldonado and specifically discussed the CTA head with him since it had been transmitted as a CTA head and venography. He had initially read the CT primarily as a venous study which was unremarkable, I discussed the arterial circulation with him including specifically the posterior circulation given my concern for potential insult relating to patient's dizziness. He did not identify any acute abnormality in the arteries of the brain, specifically of the posterior arteries. On reassessment patient remained stable, he states he feels completely back to normal at this time. No nausea, no dizziness. He has received IV fluids and his vitals are good. Unfortunately patient has multiple risk factors for intracranial pathology such as stroke or TIA given his history of diabetes, hypertension, and being overweight. I recommended MRI to the patient to further evaluate the brain parenchyma for subtle insult that could have contributed to his symptoms today that may not be identified on CT. He is agreeable to this plan and understands that means staying in the hospital longer. MRI is available today, however it is too early to coordinate this with care management so this has not yet been scheduled. I discussed this with the hospitalist. The oncoming hospitalist and daytime ER provider are going to discuss this further. Patient may end up admitted for MRI and TIA workup versus being able to receive this in ED observation. Patient handed off to Dr. Perez in stable condition pending plan for MRI. <Nakita Perez, DO - Last Filed: 06/02/24 16:06> Vital Signs: 06/02/24 04:08 06/02/24 04:26 06/02/24 07:01 Temperature 98.1 F Temperature Source Oral Pulse Rate 57 L Pulse Rate [Orthostatic Lying Right] 60 Pulse Rate [Orthostatic Sitting Right] 71 Pulse Rate [Orthostatic Standing Right] 85 Pulse Rate [Right Brachial] 65 Respiratory Rate 20 Blood Pressure 128/82 Blood Pressure [Orthostatic Lying Right Arm] 121/78 Blood Pressure [Orthostatic Sitting Right Arm] 125/84 Blood Pressure [Orthostatic Standing Right Arm] 111/84 Blood Pressure [Right Arm] 143/93 H Blood Pressure Mean Blood Pressure Mean [Right Arm] 109 Blood Pressure Source [Right Arm] Automatic Cuff Blood Pressure Position [Right Arm] Sitting 02 Sat by Pulse Oximetry 98 98 Oxygen Delivery Method Room Air Room Air 06/02/24 07:05 06/02/24 08:11 06/02/24 08:30 Temperature 97.8 F Temperature Source Oral Pulse Rate 52 L 55 L Pulse Rate [Orthostatic Lying Right] Pulse Rate [Orthostatic Sitting Right] Pulse Rate [Orthostatic Standing Right] Pulse Rate [Right Brachial] Respiratory Rate 16 16 Blood Pressure 149/101 H Blood Pressure [Orthostatic Lying Right Arm] Blood Pressure [Orthostatic Sitting Right Arm] Blood Pressure [Orthostatic Standing Right Arm] Blood Pressure [Right Arm] Blood Pressure Mean Blood Pressure Mean [Right Arm] Blood Pressure Source [Right Arm] Blood Pressure Position [Right Arm] 02 Sat by Pulse Oximetry 99 96 Oxygen Delivery Method Room Air 06/02/24 08:31 06/02/24 08:45 06/02/24 09:00 Temperature Temperature Source Pulse Rate 57 L 54 L 54 L Pulse Rate [Orthostatic Lying Right] Pulse Rate [Orthostatic Sitting Right] Pulse Rate [Orthostatic Standing Right] Pulse Rate [Right Brachial] Respiratory Rate 20 17 19 Blood Pressure 155/97 H 115/77 Blood Pressure [Orthostatic Lying Right Arm] Blood Pressure [Orthostatic Sitting Right Arm] Blood Pressure [Orthostatic Standing Right Arm] Blood Pressure [Right Arm] Blood Pressure Mean Blood Pressure Mean [Right Arm] Blood Pressure Source [Right Arm] Blood Pressure Position [Right Arm] 02 Sat by Pulse Oximetry 97 97 96 Oxygen Delivery Method 06/02/24 09:30 06/02/24 10:00 06/02/24 10:33 Temperature Temperature Source Pulse Rate 53 L 58 L Pulse Rate [Orthostatic Lying Right] 53 L Pulse Rate [Orthostatic Sitting Right] 58 L Pulse Rate [Orthostatic Standing Right] 74 Pulse Rate [Right Brachial] Respiratory Rate 17 18 Blood Pressure 120/73 121/71 Blood Pressure [Orthostatic Lying Right Arm] 128/77 Blood Pressure [Orthostatic Sitting Right Arm] 126/80 Blood Pressure [Orthostatic Standing Right Arm] 126/80 Blood Pressure [Right Arm] Blood Pressure Mean 78 Blood Pressure Mean [Right Arm] Blood Pressure Source [Right Arm] Blood Pressure Position [Right Arm] 02 Sat by Pulse Oximetry 96 98 Oxygen Delivery Method Room Air 06/02/24 10:41 Temperature 98.0 F Temperature Source Pulse Rate 53 L Pulse Rate [Orthostatic Lying Right] Pulse Rate [Orthostatic Sitting Right] Pulse Rate [Orthostatic Standing Right] Pulse Rate [Right Brachial] Respiratory Rate 13 Blood Pressure 128/77 Blood Pressure [Orthostatic Lying Right Arm] Blood Pressure [Orthostatic Sitting Right Arm] Blood Pressure [Orthostatic Standing Right Arm] Blood Pressure [Right Arm] Blood Pressure Mean Blood Pressure Mean [Right Arm] Blood Pressure Source [Right Arm] Blood Pressure Position [Right Arm] 02 Sat by Pulse Oximetry Oxygen Delivery Method Lab Data Lab Results 06/02/24 04:04: VBG pH 7.37, VBG pCO2 48.0, VBG pO2 38.9, VBG HCO3 26.9, VBG Total CO2 28.4 H, VBG O2 Saturation 71.2 H, VBG Base Excess 1.5, VBG Lactic Acid 1.8 06/02/24 04:05: WBC 4.3 L, RBC 5.76, Hgb 16.5, Hct 48.9, MCV 84.9, MCH 28.6, MCHC 33.7, RDW 13.1, Plt Count 197, MPV 9.6, Neut % (Auto) 45.4, Lymph % (Auto) 39.7, [place] % (Auto) 10.7 H, Eos % (Auto) 2.1, Baso % (Auto) 1.4, Neut # (Auto) 2.0, Lymph # (Auto) 1.7, [place] # (Auto) 0.5, Eos # (Auto) 0.1, Baso # (Auto) 0.1, PT 9.8, INR 0.88 L, Sodium 135 L, Potassium 3.9, Chloride 97 L, Carbon Dioxide 27, Anion Gap 14.9, BUN 15, Creatinine 1.00, Estimated Creat Clear 104, Estimated GFR 75, Est GFR ( Amer) 91, Glucose 250 H, Calcium 9.1, Total Bilirubin 0.7, AST 51, ALT 39, Alkaline Phosphatase 78, Troponin I < 0.01, Total Protein 7.2, Albumin 4.4, Globulin 2.8, Albumin/Globulin Ratio 1.6, Acetone Level None detected, HCV Ab MILAGROS w/Rflx PCR Qn Negative, HIV Ag/Ab Combo Qual Negative 06/02/24 05:17: Urine Color Yellow, Urine Appearance Cloudy, Urine pH 5.5, Ur Specific [place] <= 1.005, Urine Protein Negative, Urine Glucose (UA) 3+, Urine Ketones Negative, Urine Blood 3+ A, Urine Nitrate Negative, Urine Bilirubin Negative, Urine Urobilinogen 0.2, Ur Leukocyte Esterase Negative, Urine RBC 20-50, Urine WBC None, Ur Squamous Epith Cells Occasional, Urine Bacteria None 06/02/24 08:31: Troponin I < 0.01 Orders (Tests/Meds): ED MEDICATIONS Discontinued Medications Generic Name Dose Route Start Last Admin Trade Name Guyq PRN Reason Stop Dose Admin Lactated Ringer's 1,000 mls @ 999 mls/hr 06/02/24 04:04 06/02/24 04:13 Lactated Ringer's 1000 Ml Bag IV 06/02/24 05:04 999 mls/hr .Q1H1M ONE Administration Iopamidol 80 ml 06/02/24 04:56 06/02/24 04:57 Iopamidol-370 (76%);100ml Bottle IV 06/02/24 04:57 80 ml ONCE ONE Administration Meclizine HCl 25 mg 06/02/24 04:04 06/02/24 04:12 Meclizine 25mg Tablet PO 06/02/24 04:05 25 mg ONCE ONE Administration Ondansetron HCl 4 mg 06/02/24 04:04 06/02/24 04:12 Ondansetron 4mg/2ml Vial IV 06/02/24 04:05 4 mg ONCE ONE Administration Sodium Chloride 50 ml 06/02/24 04:56 06/02/24 04:57 0.9 % Sodium Chloride 50 Ml Vial IV 06/02/24 04:57 50 ml ONCE ONE Administration Sodium Chloride 10 ml 06/02/24 04:56 06/02/24 04:57 Sodium Chloride 0.9% 10ml Syr (Rad Only) IV 07/02/24 04:55 10 ml NEEDED PRN Administration Maintain IV Site ORDERS Category Date Time Status CT angio head Stat Cat Scan 06/02/24 04:[address] angio neck Stat Cat Scan 06/02/24 04:[address] head/brain wo con Stat Cat Scan 06/02/24 04:04 Completed CXR 2 view (NOT portable) [XR chest 2V] Stat Exams 06/02/24 04:04 Completed Acetone, Serum (Rapid) Stat Lab 06/02/24 04:05 Completed CBC w/Auto Diff [Complete Blood Count Auto Diff] Stat Lab 06/02/24 04:05 Completed CMP [Comprehensive Metabolic Panel] Stat Lab 06/02/24 04:05 Completed HIV Combo Routine Lab 06/02/24 04:05 Completed Hepatitis C Ab Qual. W/ RFX Routine Lab 06/02/24 04:05 Completed PT INR [Prothrombin Time INR] Stat Lab 06/02/24 04:05 Completed Trop I [Troponin I] Stat Lab 06/02/24 04:05 Completed Troponin I Q3H Lab 06/02/24 08:31 Completed Urinalysis and Microscopic Stat Lab 06/02/24 05:17 Completed VBG [Venous Blood Gas] Stat RT 06/02/24 04:04 Completed Medical Decision Narrative: In summary, this 64-year-old male with comorbidities described in the HPI which increased the amount of data to be reviewed as well as his overall morbidity presents to the emergency department today with room spinning dizziness with associated nausea, dizziness has resolved. On initial evaluation patient is hemodynamically stable, afebrile, GCS 15 with no neurologic deficits, no nystagmus, benign abdominal exam, benign cardiopulmonary exam, NIH 0. Differential diagnosis includes but is not limited to orthostatic hypotension which patient has had in the past, also considered vertigo, ACS, I did consider intracranial bleed, ischemic stroke, but have lower suspicion for these given patient's very transient nature of symptoms. I considered TIA, dehydration, electrolyte abnormality, arrhythmia, UTI, patient was hyperglycemic on fingerstick upon arrival to the ER so I considered DKA since patient is on empagliflozin. Based on these concerns, I ordered broad workup including serum labs, cardiac workup, CT imaging including CT head without contrast, CT angiography of the head and neck. I did not stroke alert the patient due to his NIH of 0 and currently absent symptoms but still I am concerned for possible stroke versus TIA. He was taken urgently to CT for rapid evaluation. Orthostatics reveal more than 10 mmHg drop in systolic blood pressure when changing positions and a heart rate increase of 25 bpm with change in position. Positive orthostatics. Patient is receiving IV fluids. ECG personally interpreted demonstrates sinus bradycardia, rate 57, normal axis, normal LA and QTc, no STEMI. Patient received Zofran, meclizine, IV fluids initially for treatment Labs personally reviewed demonstrate trace leukopenia but no neutropenia, normal hemoglobin and platelets, PT/INR nonactionable, VBG with normal pH, normal lactic, pCO2 normal, patient has trace hyponatremia and hypochloremia, nonspecific and nonactionable, good kidney function, hyperglycemia, no acetone detected. Labs are reassuring against DKA. UA is concerning for hematuria. Patient states he has had this previously but has not been evaluated for prostate abnormalities recently. I referred him to urology for follow-up. XR personally interpreted demonstrates no acute intrathoracic abnormality such as pneumothorax, pneumonia, mediastinal widening, see radiology read for final interpretation. CT imaging personally interpreted demonstrate no acute intracranial bleed, mass, or midline shift, I also do not appreciate large vessel occlusion in the head or neck angiography, see radiology reads for final interpretations. I called ad radiologist Dr. Maldonado and specifically discussed the CTA head with him since it had been transmitted as a CTA head and venography. He had initially read the CT primarily as a venous study which was unremarkable, I discussed the arterial circulation with him including specifically the posterior circulation given my concern for potential insult relating to patient's dizziness. He did not identify any acute abnormality in the arteries of the brain, specifically of the posterior arteries. On reassessment patient remained stable, he states he feels completely back to normal at this time. No nausea, no dizziness. He has received IV fluids and his vitals are good. Unfortunately patient has multiple risk factors for intracranial pathology such as stroke or TIA given his history of diabetes, hypertension, and being overweight. I recommended MRI to the patient to further evaluate the brain parenchyma for subtle insult that could have contributed to his symptoms today that may not be identified on CT. He is agreeable to this plan and understands that means staying in the hospital longer. MRI is available today, however it is too early to coordinate this with care management so this has not yet been scheduled. I discussed this with the hospitalist. The oncoming hospitalist and daytime ER provider are going to discuss this further. Patient may end up admitted for MRI and TIA workup versus being able to receive this in ED observation. Patient handed off to Dr. Perez in stable condition pending plan for MRI. Chris DO: I assumed care of the patient at 7:00 in the morning. Patient resting comfortably and is asymptomatic on my assessment. Vitals are reassuring on cardiac telemetry. Troponins x 2 were negative, MRI was obtained and does not demonstrate any acute pathology. Given this and resolution of symptoms, I feel that the patient is appropriate for discharge home with close follow-up as an outpatient. Strict return precautions were given as well as prescription for meclizine. Critical Care <Michelle Calabrese MD - Last Filed: 06/02/24 07:10> Critical Care Time Critical Care Time: Yes Attestation: On 06/02/24, the high probability of a clinically significant, sudden or life threatening deterioration of the following system(s) (neuro) required my full and direct attention, intervention and personal management. The time I documented below is in addition to time spent performing reported procedures but includes the following listed in this critical care notation. Total Time Total Critical Care Time: 35
[2024-06-02 04:12] LABS: Basophils # 0.1 K/mm3 (0-0.2); Basophils % 1.4 % (0.1-2.0); Eosinophils # 0.1 K/mm3 (0.0-0.4); Eosinophils % 2.1 % (0.1-12.0); Hematocrit 48.9 % (42.0-52.0); Hemoglobin 16.5 g/dL (14.1-18.0); Lymphocytes # 1.7 K/mm3 (0.7-4.5); Lymphocytes % 39.7 % (10-50); Mean Corpuscular HGB Conc 33.7 g/dL (31.8-35.4); Mean Corpuscular Hemoglobin 28.6 pg (27.0-31.2); Mean Corpuscular Volume 84.9 fl (80-94); Mean Platelet Volume 9.6 fl (7.4-10.4); Monocytes # 0.5 K/mm3 (0.1-1.0); Monocytes % 10.7 % (1.7-9.3); Neutrophils % 45.4 % (37.0-80.0); Platelet Count 197 K/mm3 (142-424); Red Blood Count 5.76 M/mm3 (4.60-6.20); Red Cell Distribution Width 13.1 % (11.5-17.5); White Blood Count 4.3 K/mm3 (4.8-10.8)
[2024-06-02] MEDS: ONDANSETRON 4MG/2ML VIAL 4 MG IV (04:12)
[2024-06-02] MEDS: MECLIZINE 25MG TABLET 25 MG PO (04:12)
[2024-06-02] MEDS: LACTATED RINGERS 1000ML 1,000 ML 999 ML IV (04:13)
[2024-06-02 04:17] LABS: Lactate Venous 1.8 mmol/L (0.4-2.0); VBG Base Excess 1.5 mmol/L (-2.4-2.3); VBG HCO3 26.9 mmol/L (23-30); VBG Oxygen Saturation 71.2 % (50-70); VBG PH 7.37 mmol/L (7.31-7.41); VBG PO2 38.9 mmol/L (28-40); VBG Total CO2 28.4 mmol/L (23-27)
[2024-06-02 04:17] LABS: Albumin Level 4.4 g/dl (3.5-5.0); Chloride 97 mmol/L (98-107); Sodium 135 mmol/L (136-145)
[2024-06-02 04:18] LABS: Potassium 3.9 mmoL/L (3.5-5.1)
[2024-06-02 04:20] LABS: Alanine Aminotransferase 39 U/L (12-78); Anion Gap 14.9 mEq/L (5-15); Aspartate Amino Transferase 51 U/L (17-59); Blood Urea Nitrogen 15 mg/dl (9-20); Carbon Dioxide 27 mmol/L (22.0-30.0); Creatinine Clearance Estimated 104 mL/min (50-200); Estimated Glomerular Filt Rate 75 ml/min (>60); GFR (African American) 91 ML/MIN (>60)
[2024-06-02 04:21] LABS: Albumin/Globulin Ratio 1.6 (1.1-1.8); Alkaline Phosphatase 78 U/L (38-126); Bilirubin,Total 0.7 mg/dl (0.2-1.3); Calcium 9.1 mg/dl (8.4-10.2); Globulin 2.8 g/dL (1.3-3.2); Glucose 250 mg/dl (74-100); Total Protein,Serum 7.2 g/dl (6.3-8.2)
[2024-06-02 04:23] LABS: Acetone, Serum (Rapid) None Detected (None Detect); INR 0.88 (0.9-1.1); Prothrombin Time 9.8 seconds (9.2-12.1)
--- NOTE | 2024-06-02 04:24 | ECG_ITS ---
APPROVED REPORT Exam: Resting ECG HR:57 bpm ECG Measurements Heart Rate 57 AXES AZ 166 P 56 QRSd 101 QRS 34 QT 412 T 49 QTc 406 Conclusion SINUS BRADYCARDIA Borderline ECG No STEMI Electronically signed by : NAKIA MCMILLAN, 06/02/2024 07:03:26
[2024-06-02 04:33] LABS: Troponin I < 0.01 ng/ml (0.00-0.034)
--- NOTE | 2024-06-02 04:43 | PC.NURSE ---
Pt t Ct scan via wheelchair
[2024-06-02] MEDS: IOPAMIDOL-370 (76%);100ML BOTTLE 80 ML IV (04:57)
[2024-06-02] MEDS: 0.9 % SODIUM CHLORIDE 50 ML VIAL IV (04:57)
[2024-06-02] MEDS: SODIUM CHLORIDE 0.9% 10ML SYR (RAD ONLY) 10 ML IV (04:57)
[2024-06-02 05:09] LABS: HIV Combo NEGATIVE (Negative)
[2024-06-02 05:16] LABS: Hepatitis C Ab Qual. W/ RFX NEGATIVE (Negative)
[2024-06-02 05:24] LABS: Microscopic, Urine URINE MICROSCOPIC (MICROSCOPIC)
[2024-06-02 05:25] LABS: Bilirubin,Urine Negative (Negative); Blood, Urine 3+ (Negative); Color,Urine YELLOW (Yellow); Glucose,Urine (UA) 3+ (Negative); Ketones,Urine Negative (Negative); Leukocyte Esterase,Urine Negative (Negative); Nitrate,Urine Negative (Negative); PH,Urine 5.5 (5.0-8.5); Protein,Urine Negative (Negative); Specific Gravity, Urine <= 1.005 (1.005-1.030); Urobilinogen,Urine 0.2 EU/dl (0.2)
[2024-06-02 05:26] LABS: Appearance,Urine Cloudy (Clear)
[2024-06-02 05:40] LABS: RBC,Urine 20-50 #/hpf (0-3); Squamous Epithelial Cell,Urine Occasional #/hpf (0-5)
--- NOTE | 2024-06-02 07:10 | PC.NURSE ---
Called radiology and s/w [facility], they can do MRI but need authorization with care management, have left a message with their office and will continue to reach out to them.
--- NOTE | 2024-06-02 07:19 | PC.NURSE ---
Care Management called back and status pt is ok for MRI, radiology notified.
--- NOTE | 2024-06-02 07:19 | MR_ITS ---
FINAL REPORT CLINICAL HISTORY: vertigo, recurrent FINDINGS: Multi planar MR imaging was obtained through the brain without contrast. The midline structures appear intact. There is no evidence of Chiari malformation. On T2 and flair axial images the brain parenchyma is homogeneous. On diffusion-weighted images there is no evidence of restricted diffusion. There is lobular mucoperiosteal thickening of the maxillary sinuses without air-fluid levels. The seventh and eighth nerve root complexes are intact. IMPRESSION: Essentially unremarkable nonenhanced brain MRI. Reviewed, Interpreted and Dictated by Roosevelt Sheriff MD Transcribed by Kandi Ward Authenticated and [facility]
--- NOTE | 2024-06-02 07:23 | PC.NURSE ---
pt is going to mri at this time by wheelchair
--- NOTE | 2024-06-02 08:06 | PC.NURSE ---
pt back to room from MRI via wheelchair
--- NOTE | 2024-06-02 08:32 | PC.NURSE ---
pt ambulated to restroom at this time
--- NOTE | 2024-06-02 08:36 | PC.NURSE ---
pt back to room from restroom, i hooked pt back up to data machine no other needs at this time call light in reach
[2024-06-02 10:24] LABS: Troponin I < 0.01 ng/ml (0.00-0.034)
== END 2024-06-02 10:42 | disposition home or self-care (01) ==
PROVIDERS: Emergency Provider Emergency Medicine; PCP Family Medicine
DX: I95.1 Orthostatic hypotension (principal); R31.9 Hematuria, unspecified; R42 Dizziness and giddiness; R11.0 Nausea
CPT/HCPCS: 70450; 70496; 70498; 70551; 71046; 80053; 81001; 82009; 82803; 84484; 85025; 85610; 86803; 87389; 93005; 96374; 96375; 99285; J2405; J7120; Q9967

== ENCOUNTER 2024-06-26 08:25 | Outpatient (CLI) | payer MEDICARE, SELFPAY ==
--- NOTE | 2024-06-26 08:25 | CT_ITS ---
FINAL REPORT TECHNIQUE: Pre-and postcontrast axial imaging of the abdomen and pelvis was obtained. Coronal and sagittal reformatted images were also obtained and reviewed. This study was performed with techniques to keep radiation doses as low as reasonably achievable, (ALARA). Individualized dose reduction technique using automated exposure control or adjustment of mA and/or kV according to the patient's size were employed. CLINICAL HISTORY: Hematuria COMPARISON: None FINDINGS: The lung bases are clear. The liver is fatty infiltrated without focal hepatic lesion. The gallbladder is surgically absent. The spleen, adrenal glands, and pancreas are without acute abnormality. No renal or ureteral stones are identified. There is no hydronephrosis or solid renal mass. There are a few small hypodense lesions which may be renal cysts but which are difficult to characterize due to small size. Abdominal GI tract is without acute abnormality. There is no abdominal lymphadenopathy or ascites. The prostate is unremarkable for age. The urinary bladder is incompletely distended. No abnormality is identified. Appendix is unremarkable. The GI tract is without acute abnormality. There are bilateral fat-containing inguinal hernias. There is no lymphadenopathy or ascites. No acute osseous abnormalities identified. IMPRESSION: No renal stones, hydronephrosis, or solid renal mass. Several very small hypodense renal lesions which are too small to characterize. Fatty liver. Reviewed, Interpreted and Dictated by Karen Pickering MD Transcribed by Anila Meyers Authenticated and [facility]
[2024-06-26] MEDS: SODIUM CHLORIDE 0.9% 10ML SYR (RAD ONLY) 10 ML IV (08:44)
[2024-06-26] MEDS: IOPAMIDOL-370 (76%);100ML BOTTLE 75 ML IV (08:44)
== END 2024-06-26 23:59 | disposition home or self-care (01) ==
LOC: RAD 08:25
PROVIDERS: PCP Family Medicine; Visit Provider Urology
DX: N40.0 Benign prostatic hyperplasia without lower urinary tract symptoms (principal); R31.9 Hematuria, unspecified
CPT/HCPCS: 74178; Q9967

== ENCOUNTER 2024-06-27 09:53 | Day surgery (SDC) | payer MEDICARE, SELFPAY ==
[2024-06-26 09:34] VITALS: BMI 31.5
[2024-06-27 10:42] VITALS: BP 130/78; PULSE 71; RESP 15; TEMP 36.4; O2SAT 98
[2024-06-27 10:56] LABS: POC Glucose,Bedside 255 (70-110)
--- NOTE | 2024-06-27 11:21 | P.PCN_ITS ---
[facility] Procedure Note Date: 06/27/24 Time: 11:21 Procedure Note:: Chart review: Patient has been found to have 50 red cells per high-power field and is here for cystoscopy. He has BPH with LUTS that has responded favorably to Flomax. Patient has impotence and would like attention in this area as well. I will give Cialis 5 mg daily a trial. The patient CT scan with and without infusion is negative except for bilateral small likely cysts too small to characterize. Patient may need consideration for follow-up renal ultrasound in the summer 2024. Preop diagnosis: Hematuria Postop diagnosis: Hematuria/Memberous urethral stricture Operative note: The patient was brought to the cystoscopy suite. He is prepped and draped using a sterile technique. The anterior urethra is unremarkable down to the membranous urethra. At that point the patient appears to have a urethral stricture. I was not able to pass the flexible cystoscope through the narrow urethra but any seems to have somewhat of a raggid appearance to the urethra at this level. He is going to need formal cystoscopy and likely internal urethrotomy. I will make those arrangements at .
[2024-06-27] MEDS: 0.9 % SODIUM CHLORIDE 1000ML 1,000 ML 25 ML IV (11:25)
[2024-06-27] MEDS: LIDOCAINE 2% UROJET 10ML 10 ML (11:25)
[2024-06-27 11:30] VITALS: BP 135/83; PULSE 63; RESP 18; O2SAT 98
== END 2024-06-27 11:38 | disposition home or self-care (01) ==
PROVIDERS: PCP Family Medicine; Visit Provider Urology
PROC: 0TJB8ZZ Inspection of Bladder, Via Natural or Artificial Opening Endoscopic (ICD-10-PCS; CPT 52000; principal; 2024-06-27 11:00)
DX: R31.9 Hematuria, unspecified (principal); N35.913 Unspecified membranous urethral stricture, male
CPT/HCPCS: 52000; 82962; J7030

== ENCOUNTER 2024-09-22 13:00 | Outpatient (CLI) | payer MEDICARE, SELFPAY ==
[2024-09-22 14:40] LABS: Microscopic, Urine URINE MICROSCOPIC (MICROSCOPIC)
[2024-09-22 19:41] LABS: Bilirubin,Urine Negative (Negative); Blood, Urine Negative (Negative); Glucose,Urine (UA) 3+ (Negative); Ketones,Urine Negative (Negative); Leukocyte Esterase,Urine Negative (Negative); Nitrate,Urine Negative (Negative); Protein,Urine Negative (Negative); Specific Gravity, Urine 1.025 (1.005-1.030)
[2024-09-22 19:56] LABS: Appearance,Urine Cloudy (Clear); Color,Urine Dark Yellow (Yellow)
[2024-09-22 20:33] LABS: Amorphous Sediment,Urine 4+ /lpf; Bacteria,Urine 2+ /lpf
== END 2024-09-22 23:59 | disposition home or self-care (01) ==
LOC: LAB.DROPOF 22:11
PROVIDERS: PCP Urology; Visit Provider Urology
DX: R31.9 Hematuria, unspecified (principal)
CPT/HCPCS: 81001; 87086

== ENCOUNTER 2025-03-03 06:25 | Day surgery (SDC) | payer MEDICARE, SELFPAY ==
[2025-02-26 15:15] VITALS: BMI 31.5
[2025-03-03 06:51] VITALS: BP 129/77; PULSE 67; RESP 16; TEMP 36.3; O2SAT 96; BMI 33.0
[2025-03-03] MEDS: LACTATED RINGERS 1000ML 1,000 ML 50 ML IV (07:03)
--- NOTE | 2025-03-03 07:05 | P.HP_ITS ---
HPI HPI HPI: This is a 64-year-old gentleman who presents for colonoscopy. He has a history of colon polyps and states that his most recent colonoscopy was in 2019 (prior in 2005). He believes that a few small polyps were removed last time . He is without complaint. [facility] Disclaimer: The information contained in this section may have been updated after the patient was seen, as this information can be updated by other users. Medical History (Updated 03/03/25 @ 07:06 by Garrick Zazueta MD) GERD (gastroesophageal reflux disease) Sensorineural hearing loss, unspecified Post-nasal drainage Hearing loss Hypertension Impacted cerumen of left ear Otalgia of right ear Fullness in right ear Diabetes Syncope Orthostatic hypotension Surgical History History of dental surgery Hx of cholecystectomy Family History Brother Asthma Diabetes Family/Other Asthma Father Cancer Sister Cancer Kidney disease Mother Family history non-contributory Social History (Updated 03/03/25 @ 06:57 by Mickie Vann RN) Smoking Status: Never smoker alcohol intake: never current occupational status: retired Travel in the last 8 weeks?: None Have you lived/traveled outside US in past 30 days?: No Contact w/someone who lives/traveled outside US past 30 days?: No Exposure to someone with infectious disease in past 14 days?: No Do you have a fever (greater than 100.4 F or 38 C)?: No Have you tested positive for COVID-19?: No Exposed to someone with COVID-19 in past 14 days?: No Do you have a sore throat?: No Do you have a cough?: No Do you have any weakness?: No Are you experiencing any nausea/vomitting?: No Do you have any diarrhea?: No Are you experiencing any unusual bleeding?: No Do you have any muscle aches/pain?: No Do you have any abdominal pain?: No Are you experiencing loss of taste or smell?: No Other Medical History Have you received the Pneumonia Vaccine: No Review of Systems Review of Systems Review of systems:: pertinent systems reviewed and negative unless documented below Meds Home Medications and Allergies Home Medications ?Medication ?Instructions ?Recorded ?Confirmed ?Type lisinopril 20 1 tab PO DAILY 04/04/2302/05 History mg-hydrochlorothiazide 12.5 mg tablet metformin 500 mg tablet 500 mg PO .with meals 03/03/25 History levocetirizine 5 mg tablet See Rx Instructions .Route 10/16/24 03/03/25 Rx .COMPLEX #90 tabs glimepiride 4 mg tablet 4 mg PO DAILY 01/26/2503/03 History tadalafil 5 mg tablet (Cialis) 5 mg PO DAILY 90 days # 90 tabs 01/26/25 03/03/25 Rx tamsulosin 0.4 mg capsule (Flomax) 0.4 mg PO Q24H 90 d ays #90 caps 01/26/25 03/03/25 Rx omeprazole 20 mg capsule,delayed 20 mg PO DAILY #30 ca ps 01/29/25 03/03/25 Rx release New Prescriptions to Start Prescriptions: Allergies Allergy/AdvReac Type Severity Reaction Status Date / Time No Known Drug Allergies Allergy Unknown Other Verified 01/29/25 09:04 (NKDA) Exam Data for Last 24 hours Vital signs and Labs for Last 24 Hours: Temp Pulse Resp BP Pulse Ox O2 Del Method 97.4 F L 67 16 129/77 96 Room Air 03/03/25 06:51 03/03/25 06:51 03/03/25 06:51 03/03/25 06:51 03/03/25 06:51 03/03/25 06:51 I & O for Last 24 hours: Intake & Output 02/28/25 03/01/25 03/02/25 03/03/25 11:59 11:59 11:59 11:59 Weight 230 lb Constitutional Constitutional: no acute distress *Routine HEENT Exam Head: Present normocephalic Eye: Present EOMI ENT: Present mucous membranes moist *Routine Neck Exam Neck: Present full ROM *Routine Respiratory Exam Respiratory: Absent respiratory distress *Routine Cardiovascular Exam Cardiovascular: Absent tachycardia *Routine Abdominal Exam Abdominal: Present soft *Routine Rectal Exam Rectal:: deferred *Routine Genitalia Exam Genitalia:: deferred *Routine Extremities Exam Extremities: Present full ROM *Routine Skin Exam Skin: Absent erythema *Routine Neurological Exam Neurological: Present alert Assessment and Plan *Assessment and plan (1) History of colon polyps: Status: Acute Category: Medical Code(s): Z86.0100 - Personal history of colon polyps, unspecified Plan: Colonoscopy today I have discussed the risks and benefits including, but not limited to: Bleeding Infection Damage to surrounding tissue Inherent risks of sedation The patient agrees to proceed.
--- NOTE | 2025-03-03 07:07 | HMH.SCOPE ---
Procedure: Date: 03/03/25 Patient Date of :: 1960 Procedure Performed:: Colonoscopy with polypectomy Indications:: History of colon polyps Note: The patient reports that his most recent colonoscopy was performed in [facility] by Dr. Anderson in 2019. He states that a few small polyps were removed . Performing Provider:: Garrick Zazueta MD Referring Provider:: . Sedation:: Monitored anesthesia care Procedure:: After informed consent was obtained the patient was taken to the endoscopy suite. Sedation ensued after the patient was transferred to the left lateral decubitus position. Pulse, blood pressure, and oxygen saturation were monitored throughout the procedure. Digital rectal exam revealed no significant abnormality. The colonoscope was placed in position. The entire colon was evaluated. The colonoscope was carefully removed and the patient was transferred to recovery in stable condition. Please see findings and specimens below for detail. Findings:: Bowel preparation moderate to poor Significant lack of relaxation/spasticity Polyps (see specimens) Specimens:: Lobulated right colon polyp (cold biopsy forceps) Complex lobulated transverse colon polyp (hot snare) Distal transverse colon polyp (hot snare) Polyp at 45 cm (hot snare) Polyp at 35 cm (hot snare) Polyp at 15 cm (cold biopsy forceps) Recommendations:: Timing of repeat colonoscopy is pending pathology will likely be around 2-3 years with extended/alternate bowel preparation. Complications:: No immediate Estimated blood obtained (mL): 1 Colonoscopy Component Colonoscopy Component Was a colonoscopy performed during today's procedure?: Yes Recommended follow up colonoscopy of at least 10 years?: No If no, follow up colonoscopy recommended in ___ years?: (see above) Reason for not recommending >/= 10 yr follow-up interval?: (see above)
--- NOTE | 2025-03-03 07:10 | EXP.ANES.CKL ---
[facility] Disclaimer: The information contained in this section may have been updated after the patient was seen, as this information can be updated by other users. Medical History GERD (gastroesophageal reflux disease) Sensorineural hearing loss, unspecified Post-nasal drainage Hearing loss Hypertension Impacted cerumen of left ear Otalgia of right ear Fullness in right ear Diabetes Syncope Orthostatic hypotension Surgical History History of dental surgery Hx of cholecystectomy Family History Brother Asthma Diabetes Family/Other Asthma Father Cancer Sister Cancer Kidney disease Mother Family history non-contributory Social History Smoking Status: Never smoker alcohol intake: never substance use type: unknown current occupational status: retired Travel in the last 8 weeks?: None [facility] Anesthesia Checklist Patient Identification Patient Identification: Arm Band and Verbal (Name & ) Structural Data Admitted From: Home Planned Operative Procedure/s: colonscopy Consent for Planned Operative Procedure(s) Verified: Yes Verified Documents: Surgical Consent and History and Physical NPO Status Verified Time NPO: 00:00 Additional verifications Anesthesia Reactions: No Previous Colonoscopy: Yes Airway Assessment Mallampati Score:: Class III Dentition: Good Dentition Neurological Assessment Level of Consciousness: Awake, Alert and Appropriate Hx Seizures: No Numbness or tingling in extremities: No Anesthesia Plan Anesthesia Risk discussed: Yes Anesthesia Plan: Verified ASA Class: II Anesthesia Type: MAC
[2025-03-03 07:30] LABS: POC Glucose,Bedside 223 gm/dL (70-110)
[2025-03-03 08:14] VITALS: BP 108/71; PULSE 63; RESP 16; TEMP 36.1; O2SAT 94
[2025-03-03 08:24] VITALS: BP 113/71; PULSE 62; RESP 17; TEMP 36.1; O2SAT 97
[2025-03-03 08:34] VITALS: BP 116/81; PULSE 59; RESP 17; TEMP 36.1; O2SAT 95
[2025-03-03 08:44] VITALS: BP 119/84; PULSE 70; RESP 18; TEMP 36.1; O2SAT 96
== END 2025-03-03 08:56 | disposition home or self-care (01) ==
PROVIDERS: PCP Family Medicine; Visit Provider Surgery
PROC: 0DJD8ZZ Inspection of Lower Intestinal Tract, Via Natural or Artificial Opening Endoscopic (ICD-10-PCS; CPT 45385; principal; 2025-03-03 07:30)
DX: D12.2 Benign neoplasm of ascending colon (principal); D12.3 Benign neoplasm of transverse colon; E11.9 Type 2 diabetes mellitus without complications; K21.9 Gastro-esophageal reflux disease without esophagitis; I10 Essential (primary) hypertension; Z86.0100 Personal history of colon polyps, unspecified; Z79.84 Long term (current) use of oral hypoglycemic drugs
CPT/HCPCS: 45385; 82962; 88305; J2003; J2704; J7120

== ENCOUNTER 2025-04-27 08:00 | Outpatient (CLI) | payer MEDICARE, SELFPAY ==
[2025-04-27 15:00] LABS: Microscopic, Urine URINE MICROSCOPIC (MICROSCOPIC)
[2025-04-27 15:27] LABS: Bilirubin,Urine Negative (Negative); Color,Urine YELLOW (Yellow); Glucose,Urine (UA) 2+ (Negative); Ketones,Urine TRACE (Negative); Leukocyte Esterase,Urine Negative (Negative); PH,Urine 6.0 (5.0-8.5); Protein,Urine Negative (Negative); Specific Gravity, Urine 1.020 (1.005-1.030); Urobilinogen,Urine 1.0 EU/dl (0.2)
[2025-04-27 15:51] LABS: Bacteria,Urine Trace /lpf; WBC,Urine Occasional #/hpf (0-3)
--- OUTSIDE RECORDS SUMMARY | 2025-04-28 12:23 | XMS_ITS | Clinical Summary ---
Author Organization [facility] Address [address] [place] [phone] Phone [email or web address] Care Team Providers Care Campus Security Officer Name Role Phone Unavailable Primary Care Provider Unavailabl e Allergies No known active allergies Medications metFORMIN (GLUCOPHAGE) 500 MG tabletIndications :Essential hypertension Take 500 mg by mouth 2 (two) times a day with meals. Active lisinopril (PRINIVIL,ZESTRIL ) 5 MG tablet Take 1 tablet (5 mg total) by mouth 1 (one) time each day. 90 tablet 06/06/2018 Active indomethacin (INDOCIN) 25 MG capsuleIndication s:Acute pain of left wrist Take 2 pills by mouth 3 x daily for 4 days, then take 1 pill by mouth 3 x daily for 4 days 36 capsule 11/01/2018 Active Active Problems Problem Noted Date Diagnosed Date Uncontrolled diabetes mellitus type 2 without co mplications 12/12/2010 Overview (10/03/2017): Benign essential hypertension 12/01/2009 Overview (10/03/2017): Astigmatism 11/30/2009 Overview (10/03/2017): Presbyopia 07/30/2007 Overview (10/03/2017): Resolved Problems Problem Noted Date Diagnosed Date Resolved Date Essential hypertension 04/05/201706/18 Overview (10/03/2017): Routine general medical exam ination at a health care facility 11/23/2010 06/18/2018 Overview (10/03/2017): Laboratory exam ordered as p art of routine general medical examination 10/07/2010 06/18/2018 Overview (10/03/2017): Allergic rhinitis 07/29/2010 06/18/2018 Overview (10/03/2017): Cellulitis and abscess of [place], except fingers and thumb 04/11/2010 06/18/2018 Overview (10/03/2017): Need for prophylactic vaccin ation and inoculation against influenza 03/02/2010 06/18/2018 Overview (10/03/2017): Examination for medicolegal reason 08/26/2009 06/18/2018 Overview (10/03/2017): Acute prostatitis 11/05/2008 06/18/2018 Overview (10/03/2017): Acute conjunctivitis 07/23/2008 019 Overview (10/03/2017): Acute upper respiratory infe ctions of other multiple sites 05/15/2008 06/18/2018 Overview (10/03/2017): Other examination of ears and hearing 02/27/2008 06/18/2018 Overview (10/03/2017): Otitis media 01/22/2008 06/18/2018 Overview (10/03/2017): Acute sinusitis 10/07/2007 06/18/2018 Overview (10/03/2017): Cellulitis and abscess 08/07/200706/18 Overview (10/03/2017): Rash and other nonspecific skin eruption 08/06/2007 06/18/2018 Overview (10/03/2017): Immunizations Immunization Administration Dates Next Due Influenza, unspecified (CVX-88) 03/02/2010 Tdap (ADACEL BOOSTRIX) (CVX-115) 04/05/2017 Social History Tobacco Use Types Packs/Day Years Used Date Smoking Tobacco: Never Smokeless Tobacco: Never Tobacco Cessation:Counseling Given: No Alcohol Use Standard Drinks/Week Comments Yes 0 (1 standard drink = 0.6 oz pur e alcohol) Intimate Partner Violence Answer Date R ecorded Insults You Not on file 08/17/2020 Threatens You Not on file 08/17/2020 Screams at You Not on file 08/17/2020 Physically Hurt Not on file 08/17/2020 Intimate Partner Violence Score Not on file 08/17/2020 Depression Answer Date Recorded PHQ Total Score Not on file 08/17/2020 Stress Answer Date Recorded Stress in your Life 0 06/18/2020 Dealing with Stress Not on file 06/18/2020 Sex and Gender Information Value Date Recorded Sex Assigned at Not on file Legal Sex Male 8:17 AM CDT Gender Identity Not on file Sexual Orientation Not on file Last Filed Vital Signs Vital Sign Reading Time Taken Comments Blood Pressure 128/78 11/01/2018 8:53 AM EDT Pulse 88 11/01/2018 8:53 AM EDT Temperature 36.7 C (98 F) 11/01/2018 8:53 AM EDT Respiratory Rate 14 06/06/2018 12:44 PM EST Oxygen Saturation 96% 11/01/2018 8:53 AM EDT Inhaled Oxygen Concentration - - Weight 106 kg (234 lb) 06/18/2018 2:09 PM EST Height 177.8 cm (5' 10 ) 06/18/2018 2:09 PM EST Body Mass Index 33.58 06/18/2018 2:09 PM EST Plan of Treatment Health Maintenance Due Date Last Done Comments CT Colonography 1960 Colonoscopy 1960 Colorectal Cancer Screening Combo 1960 DNA Cologuard 1960 Dental Cleaning/Exam 1960 FIT or FOBT Test 1960 Sigmoidoscopy 1960 Pneumococcal: 50+ Years (1 o f 1 - PCV) 2009 Zoster Immunization (1 of 2) 2009 Covid-19 Immunization (1 - 2 025-26 season) 2025 Influenza Immunization (#1) 2025 03/02/2010 Tetanus Diphtheria and Pertu ssis Immunization (2 - Td or Tdap) 04/05/2027 04/05/2017 HIB Immunization Aged Out No longer e ligible based on patient's age to complete this topic HPV Immunization Aged Out No longer e ligible based on patient's age to complete this topic Hepatitis A Immunization Aged Out No longer eligible based on patient's age to complete this topic Hepatitis B Immunization Aged Out No longer eligible based on patient's age to complete this topic Polio Immunization Aged Out No longer eligible based on patient's age to complete this topic Insurance [employer] [place] 5
--- OUTSIDE RECORDS SUMMARY | 2025-04-28 12:23 | XMS_ITS | Clinical Summary ---
Author Organization [facility] Address [address] [place] [address] Care Team Providers Care Electromechanical Technologist Name Role Phone Gallito Langston MD Primary Care Provider [phone] Nabeel Coleman MD Unavailable [phone] Allergies No known active allergies Medications levocetirizine (Xyzal) 5 MG tablet 07/18/2024 Active metFORMIN (Glucophage) 500 MG tablet take 1 tablet by mouth once daily with meals Active tamsulosin (Flomax) 0.4 MG 24 hr capsule Take 1 capsule by mouth daily. 07/31/2024 Active lisinopril-hydr oCHLOROthiazide 20-12.5 MG tablet Take 1 tablet by mouth. 08/04/2024 Active Social History Tobacco Use Types Packs/Day Years Used Date Smoking Tobacco: Never Passive Smoke Exposure: Never Smokeless Tobacco: Never Alcohol Use Standard Drinks/Week Comments Never 0 (1 standard drink = 0.6 oz pur e alcohol) PHQ-2 Answer Date Recorded Patient Health Questionnaire-2 Score 0 10/03/2024 PHQ-9 Answer Date Recorded Patient Health Questionnaire-9 Score 0 10/03/2024 Sex and Gender Information Value Date Recorded Sex Assigned at Not on file Legal Sex Male 8:50 PM EDT Gender Identity Not on file Sexual Orientation Not on file Last Filed Vital Signs Vital Sign Reading Time Taken Comments Blood Pressure 127/77 10/03/2024 9:31 AM EDT Pulse 83 10/03/2024 9:31 AM EDT Temperature 36.7 C (98.1 F) 10/03/2024 9:31 AM EDT Respiratory Rate 16 08/04/2024 1:24 PM EDT Oxygen Saturation 98% 10/03/2024 9:31 AM EDT Inhaled Oxygen Concentration - - Weight 103 kg (227 lb 1.2 oz) 10/03/2024 9:31 AM EDT Height 177.8 cm (5' 10 ) 10/03/2024 9:31 AM EDT Body Mass Index 32.58 10/03/2024 9:31 AM EDT Plan of Treatment Health Maintenance Due Date Last Done Comments [facility]-Diabetes: Hemoglobin A1C 1959 [facility]-Hepatitis C Screening 1959 [facility]-Medicare Annual Wellness (AWV) 1959 [facility]-/Child/Adol SDOH Screenings 1959 Diabetes: Dental Exam 1969 [facility]- SDOH Screenings 1977 [facility]-Adult SDOH Screenings 1977 [facility]-Pneumococcal Vaccine: 50 + Years (1 of 2 - PCV) 1978 CT Colonography 2004 Colonoscopy 2004 FIT-DNA 2004 FIT 2004 FOBT 2004 Sigmoidoscopy 2004 [facility]-Colorectal Cancer Screening 2004 [facility]-Zoster Vaccines (1 of 2) 2009 [id number] Vaccine (1 - 2024- season) 2025 [facility]-Influenza Vaccine (#1) 2025 03/02/2010 [facility]-Depression Screening 10/03/2025 025, 10/03/2024 [facility]-DTaP,Tdap,and Td Vaccine s (2 - Td or Tdap) 04/05/2027 04/05/2017, 07/10/1996 [facility]-RSV Vaccine: 60+ Years o r (1 - 1-dose 75+ series) 2034 [facility]-Obesity Intervention Completed 025, 08/19/2024 HPV Vaccines (No Doses Required) Completed [facility]-HIB Vaccines Aged Out No longer e ligible based on patient's age to complete this topic [facility]-Hepatitis A Vaccines Aged Out No longer eligible based on patient's age to complete this topic [facility]-IPV Vaccines Aged Out No longer e ligible based on patient's age to complete this topic [facility]-Rotavirus Vaccines Aged Out No lo nger eligible based on patient's age to complete this topic Insurance [facility] MEDICARE Care Teams Electromechanical Technologist Relationship Specialty Start Date End Date Gallito Langston MD [address] [place] [id number] PCP - General 06/30/24 Nabeel Coleman MD [address] [facility] [address] [place] [address] Consulting Physician Urology 08/04/24
== END 2025-04-27 23:59 | disposition home or self-care (01) ==
LOC: LAB.DROPOF 04-28 12:22
PROVIDERS: PCP Family Medicine; Visit Provider Urology
DX: N28.1 Cyst of kidney, acquired (principal)
CPT/HCPCS: 81001